=== PATIENT | female | born 1975 | race Two or more races ===

== ENCOUNTER 2016-09-01 22:22 | Emergency (ER) | payer MEDICAID ==
[2016-09-01 22:34] VITALS: O2SAT 96
--- NOTE | 2016-09-01 23:22 | EDPHY ---
H & P Time Seen by Provider: 09/01/16 22:38 HPI/ROS: CHIEF COMPLAINT: finger laceration HISTORY OF PRESENT ILLNESS: 41-year-old female presents to the emergency department with a laceration to her left index finger. 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 Patient reports the bleeding is not controlled. Patient's tetanus is up-to-date. She is [id number]. REVIEW OF SYSTEMS: A comprehensive 10 point review of systems is otherwise negative aside from elements mentioned in the history of present illness. Smoking Status: Former smoker Physical Exam: GEN: Awake, alert, oriented, no acute distress RESP: nl resp effort MSK: Left index finger with full active range of motion, 2 point discrimination intact SKIN: 1 cm long, 5 mm wide skin avulsion to distal aspect left index finger palmar pad of finger, patient has active oozing of a distal vessel Constitutional: Initial Vital Signs Temperature (C) 36.7 C 09/01/16 22:30 Heart Rate 93 09/01/16 22:30 Respiratory Rate 20 09/01/16 22:30 Blood Pressure 128/106 H 09/01/16 22:30 O2 Sat (%) 96 09/01/16 22:30 O2 Delivery Mode Room Air Allergies/Adverse Reactions: No Known Allergies Allergy (Unverified 09/01/16 22:29) Home Medications: Medication Instructions Recorded Prozac 40 mg 09/01/16 VYVANSE 09/01/16 MDM/Departure - MDM Procedures: Procedure: Laceration repair. Verbal consent was obtained from the patient. The 1 cm laceration on the left index finger was anesthetized using digital block using 1% lidocaine without epinephrine. The wound was carefully irrigated by the emergency department digital cartographic technician. Next, the wound was prepped and draped in sterile fashion and explored to its base with a gloved finger. There were no deep structures involved. No tendon injury was identified. Continuous oozing of a peripheral vessel noted, this was cauterized. No foreign bodies were identified. The wound was repaired with 5.0 Vicryl rapide, 4 simple interrupted sutures. The wound repair was simple. The procedure was performed by myself. Tetanus and antibiotic status were addressed.. - Depart Disposition: Home, Routine, Self-Care Clinical Impression: Avulsion of skin of finger Qualifiers: Encounter type: initial encounter Qualified Code(s): S61.209A - Unspecified open wound of unspecified finger without damage to nail, initial encounter Condition: Good Instructions: Skin Avulsion (ED) Additional Instructions: Keep dressing clean and dry for 72 hours then you may remove, place antibiotic ointment and Band-Aid. Your blood pressure is high today. Follow-up with your primary care doctor regarding this. Return to the emergency department for any continued bleeding, new symptoms or concerns. Referrals: JESUS BERNAL [Other] - As per Instructions
[2016-09-02 00:23] VITALS: BP 139/97; PULSE 97; RESP 16; TEMP 97.9
== END 2016-09-02 00:27 | disposition home or self-care (01) ==
PROC: 0HQGXZZ Repair Left Hand Skin, External Approach (ICD-10-PCS; principal; 2016-09-01)
DX: S61.201A Unspecified open wound of left index finger without damage to nail, initial encounter (principal); Z87.891 Personal history of nicotine dependence; W45.8XXA Other foreign body or object entering through skin, initial encounter; Y92.89 Other specified places as the place of occurrence of the external cause; Y99.0 Civilian activity done for income or pay; Y93.89 Activity, other specified

== ENCOUNTER 2018-06-23 13:41 | Emergency (ER) | payer MEDICAID ==
[2018-06-23] MEDS ORDERED: ONDANSETRON 4 MG/2 ML VIAL IVP ONE (14:11)
[2018-06-23] MEDS ORDERED: NS 1,000 ML IV ONE ×2 (14:11→16:01)
[2018-06-23] MEDS ORDERED: HYDROmorphONE/DILAUDID 2 MG/ML INJ IVP ONE (14:11)
[2018-06-23 14:31] VITALS: BP 144/98
[2018-06-23 14:40] LABS: PLATELET COUNT 330 10^3/uL (150-400)
--- NOTE | 2018-06-23 15:02 | EDPHY ---
H & P Stated Complaint: ruq abd/r flank pain post eating pizza last evening n/v Time Seen by Provider: 06/23/18 14:02 HPI/ROS: CHIEF COMPLAINT: Right upper quadrant pain, right flank pain, vomiting HISTORY OF PRESENT ILLNESS: 43-year-old female status post gastric bypass and cholecystectomy reports she develops severe right upper quadrant and right mid quadrant pain after eating pizza last night. Pain radiates through to her back. Reports she felt like it was gas, took Gas-X and Tums with no relief. No fever. She has had vomiting. Denies diarrhea. Last bowel movement was yesterday. Patient also states she has been urinating a lot. No hematuria. No dysuria. No cold, cough, runny nose. No chest pain. No palpitations. No headache or lightheadedness. REVIEW OF SYSTEMS: A comprehensive 10 system review of systems was reviewed and is otherwise negative aside from elements mentioned in the history of present illness and medical decision making. PAST MEDICAL HISTORY: Status post cholecystectomy, status post gastric bypass, attention deficit hyperactivity disorder. SOCIAL HISTORY: Nonsmoker. Rare alcohol use. VITAL SIGNS Reviewed by me. GENERAL: Well-developed, well-nourished, resting comfortably in no respiratory distress. HEENT: Atraumatic. Eyes: No icterus, no injection. Mouth: moist mucous membranes. No erythema or lesions. Neck: supple with no adenopathy. LUNGS: Clear to auscultation bilaterally, no wheezes, rhonchi or rales. CARDIAC: Regular rate and rhythm, no rubs, murmurs or gallops. ABDOMEN: Soft, moderate tenderness in the right upper quadrant, right mid quadrant, and in the right flank. Nondistended. No guarding or rebound. BACK: Right flank CVA tenderness. EXTREMITIES: No trauma. No edema. Range of motion is normal throughout. NEURO: Alert and oriented, grossly nonfocal. SKIN: Warm and dry, no rash. PSYCHIATRIC: Normal mentation, no agitation. - Personal History LMP (Females 10-55): Hysterectomy Current Tetanus Diphtheria and Acellular Pertussis (TDAP): Yes - Medical/Surgical History Hx Asthma: No Hx Chronic Respiratory Disease: No Hx Diabetes: No Hx Cardiac Disease: No Hx Renal Disease: No Hx Cirrhosis: No Hx Alcoholism: No Hx HIV/AIDS: No Hx Splenectomy or Spleen Trauma: No Other PMH: OMARI , OSBERGERS, ADHD, DEPRESSION, GASTRIC BYPASS, GALLBLADDER, C- SECT X2 hysterectomy - Social History Smoking Status: Current every day smoker Constitutional: Initial Vital Signs Temperature (C) 36.5 C 06/23/18 13:46 Heart Rate 84 06/23/18 13:46 Respiratory Rate 16 06/23/18 13:46 Blood Pressure 130/92 H 06/23/18 13:46 O2 Sat (%) 97 06/23/18 13:46 O2 Delivery Mode Room Air Allergies/Adverse Reactions: No Known Allergies Allergy (Verified 06/23/18 13:45) Home Medications: Medication Instructions Recorded Prozac 40 mg 09/01/16 VYVANSE 09/01/16 Cephalexin [Keflex (RX)] 500 mg PO TID 7 Days cap 06/23/18 Cyclobenzaprine [Flexeril 10 MG 10 mg PO TID PRN #15 tab 06/23/18 (*)] Ondansetron Odt [Zofran Odt 4 mg 4 mg PO Q6 PRN #8 tab 06/23/18 (RX)] Propranolol HCl ER 06/23/18 Tamsulosin HCl [Flomax] 0.4 mg PO DAILY #10 cap 06/23/18 oxyCODONE/APAP 5/325 [Percocet 1 tab PO TID PRN #10 tab 06/23/18 5/325 (*)] Medical Decision Making - Diagnostics Imaging Results: Abdomen/Pelvis CT 06/23/18 15:19 Impression: 1. Obstructing 4.8 mm right UVJ stone with moderate to severe right hydronephrosis and hydroureter. 2. Extrahepatic ductal dilatation, likely related to postcholecystectomy state. Findings and recommendations discussed with Nathalie John MD at 1547 hour, . Imaging: Discussed imaging studies w/ score caller Radiologist ED Course/Re-evaluation: IV placed. Differential includes pyelonephritis, kidney stone, retained biliary stone, choledocholithiasis. UA positive for blood and crystals noted. CT without contrast ordered. Demonstrates 4-5mm stone at UVJ with proximal obstruction and hydronephrosis. Given flomax, fluids, toradol, pain meds, flexeril. Will also cover with Keflex as patient has WBC in UA as well. See dc instructions. Patient improved post ED interventions and comfortable being discharged to home. Differential Diagnosis: Differential diagnosis of the patient's flank pain was considered including but not limited to musculoskeletal causes, kidney stone, pyelonephritis, shingles, and intra-abdominal causes such as diverticulitis and appendicitis. - Data Points Laboratory Results: Laboratory Results 06/23/18 14:30 06/23/18 14:30 Medications Given: Discontinued Medications Hydromorphone HCl (Dilaudid) 1 mg IVP EDNOW ONE Stop: 06/23/18 14:12 Last Admin: 06/23/18 14:25 Dose: 1 mg Sodium Chloride (Ns) 1,000 mls @ 0 mls/hr IV EDNOW ONE; Wide Open PRN Reason: Protocol Stop: 06/23/18 14:12 Last Admin: 06/23/18 14:25 Dose: 1,000 mls Sodium Chloride (Ns) 1,000 mls @ 0 mls/hr IV EDNOW ONE; Wide Open PRN Reason: Protocol Stop: 06/23/18 16:02 Last Admin: 06/23/18 16:05 Dose: 1,000 mls Ketorolac Tromethamine (Toradol) 30 mg IVP EDNOW ONE Stop: 06/23/18 16:02 Last Admin: 06/23/18 16:05 Dose: 30 mg Ondansetron HCl (Zofran) 4 mg IVP EDNOW ONE Stop: 06/23/18 14:12 Last Admin: 06/23/18 14:25 Dose: 4 mg Tamsulosin HCl (Flomax) 0.4 mg PO EDNOW ONE Stop: 06/23/18 16:03 Last Admin: 06/23/18 16:06 Dose: 0.4 mg Departure - Departure Disposition: Home, Routine, Self-Care Clinical Impression: Renal colic on right side, Kidney stone on right side Condition: Good Instructions: Kidney Stones (ED), Urinary Tract Infection in Women (ED) Additional Instructions: Take the oxycodone as needed for severe pain. Use Zofran as needed for nausea. Take ibuprofen 600 mg every 6-8 hours as needed for moderate pain. This will also help with inflammation. Take Flomax as directed. Take Keflex 500 mg 2 times a day for the next 7 days to prevent the development of an infection. Followup with urology as directed below. Strain urine. Return to the emergency department if you have worsening pain, fevers, persistent vomiting, or other concerns. Please drink plenty of fluids and get plenty of rest. Referrals: VICENTA WITT [Other] - As per Instructions Ravi Duke MD [Medical Doctor] - As per Instructions Prescriptions: Cephalexin [Keflex (RX)] 500 mg PO TID 7 Days cap Cyclobenzaprine [Flexeril 10 MG (*)] 10 mg PO TID PRN #15 tab PRN Reason: Spasms Ondansetron Odt [Zofran Odt 4 mg (RX)] 4 mg PO Q6 PRN #8 tab PRN Reason: Nausea oxyCODONE/APAP 5/325 [Percocet 5/325 (*)] 1 tab PO TID PRN #10 tab PRN Reason: Pain Tamsulosin HCl [Flomax] 0.4 mg PO DAILY #10 cap
[2018-06-23] MEDS ORDERED: KETOROLAC 30 MG/1 ML SDV IVP ONE (16:01)
[2018-06-23] MEDS ORDERED: TAMSULOSIN HCL 0.4 MG CAP PO ONE (16:02)
== END 2018-06-23 16:49 | disposition home or self-care (01) ==
DX: N23 Unspecified renal colic (principal); N13.2 Hydronephrosis with renal and ureteral calculous obstruction; N13.4 Hydroureter
CPT/HCPCS: 96374; J1170; J1885; J2405